=== PATIENT | male | born 1985 | race Caucasian/White ===

== ENCOUNTER 2023-10-15 20:11 | Emergency (ER) | payer SELFPAY ==
[~2023-10-15] VITALS: Ht 172.7 cm; Wt 90.7 kg
[2023-10-15 20:31] VITALS: BP 147/108; PULSE 104; RESP 16; TEMP 98.3; O2SAT 99
[2023-10-16 00:31] LABS: APPEARANCE,URINE CLEAR (CLEAR); BILIRUBIN,URINE NEGATIVE (NEGATIVE); BLOOD, URINE TRACE-I (NEGATIVE); COLOR,URINE YELLOW (YELLOW); LEUKOCYTE ESTERASE ,URINE NEGATIVE (NEGATIVE); NITRITE, URINE NEGATIVE (NEGATIVE); PROTEIN,URINE 1+ (NEGATIVE); UGLUCOSE 3+ (NEGATIVE); UROBILINOGEN,URINE 0.2 EU/dL (0.2 - 1)
[2023-10-16 00:46] LABS: BACTERIA,URINE OCCASSIONAL /HPF (None Seen); RBC,URINE 0-5 /HPF (0-5); SQUAMOUS EPITHELIAL CELL,UR 4-10 (MOD) /LPF (0-3 (FEW)); WBC,URINE 0-5 /HPF (0-5); YEAST,URINE Few /HPF (None Seen)
[2023-10-16 01:06] LABS: BASOPHILS # (AUTO) 0.1 K/uL (0.00-0.22); BASOPHILS % (AUTO) 1.2 % (0.0-2.0); EOSINOPHILS # (AUTO) 0.1 K/uL (0-0.4); HEMOGLOBIN 16.9 g/dL (12.0-18.0); LYMPHOCYTES # (AUTO) 2.1 K/uL (2.0-11.5); LYMPHOCYTES % (AUTO) 27.3 % (20.5-51.1); MEAN CORPUSCULAR HEMOGLOBIN 30 pg (27-31); MEAN CORPUSCULAR HGB CONC 35 g/dL (33-37); MEAN CORPUSCULAR VOLUME 84.2 fL (80-94); MONOCYTES # (AUTO) 0.5 K/uL (0.8-1.0); MONOCYTES % (AUTO) 6.2 % (1.7-9.3); NEUTROPHILS % (AUTO) 64.3 % (42.2-75.2); PLATELET COUNT (AUTO) 234 K/uL (140-450); RED BLOOD CELL COUNT(AUTO) 5.71 MIL/uL (4.20-6.10); WHITE BLOOD COUNT (AUTO) 7.8 K/uL (4.8-10.8)
[2023-10-16 01:25] LABS: ALANINE AMINOTRANSFERASE 116 U/L (12-78); ALBUMIN 3.6 g/dL (3.4-5.0); ALKALINE PHOSPHATASE 240 U/L (50-136); ASPARTATE AMINOTRANSFERASE 40 U/L (15-37); BILIRUBIN,DIRECT 0.2 mg/dL (0.0-0.3); TOTAL BILIRUBIN 1.5 mg/dL (0.0-1.0); TOTAL PROTEIN, SERUM 9.1 g/dL (6.4-8.2)
[2023-10-16 01:30] LABS: ANION GAP 14.1 (8-16); CALCIUM 8.9 mg/dL (8.5-10.1); CARBON DIOXIDE 28.9 mmol/L (21-32); CREATININE 1.1 mg/dL (0.6-1.3)
== END 2023-10-16 00:25 | disposition left against medical advice (07) ==
LOC: MED 20:11
DX: E11.9 Type 2 diabetes mellitus without complications (principal)
CPT/HCPCS: 36415; 80048; 80076; 81001; 83880; 84484; 85025; 99283

== ENCOUNTER 2023-10-18 12:47 | Emergency (ER) | payer OTHER ==
[~2023-10-18] VITALS: Ht 180.3 cm; Wt 90.7 kg
[2023-10-18 13:04] VITALS: BP 125/94; PULSE 107; RESP 18; TEMP 97.7; O2SAT 96
[2023-10-18] MEDS ORDERED: METF-1243 PO (13:33)
[2023-10-18] MEDS ORDERED: LOTC TP (13:33)
[2023-10-18] MEDS ORDERED: CEPH-588 PO (13:33)
== END 2023-10-18 13:49 | disposition home or self-care (01) ==
LOC: MED 12:47
DX: N48.1 Balanitis (principal); E11.65 Type 2 diabetes mellitus with hyperglycemia; Z79.4 Long term (current) use of insulin; Z79.899 Other long term (current) drug therapy
CPT/HCPCS: 99283

== ENCOUNTER 2023-10-23 08:59 | Emergency (ER) | payer OTHER ==
[~2023-10-23] VITALS: Ht 152.4 cm; Wt 90.7 kg
[~2023-10-23 08:59] MED LIST: CEPH-588 PO; LOTC TP; METF-1243 PO
[2023-10-23 09:02] VITALS: BP 121/98; PULSE 108; RESP 18; TEMP 98.9; O2SAT 98
[2023-10-23 09:45] LABS: APPEARANCE,URINE CLEAR (CLEAR); BILIRUBIN,URINE NEGATIVE (NEGATIVE); BLOOD, URINE TRACE-I (NEGATIVE); COLOR,URINE YELLOW (YELLOW); LEUKOCYTE ESTERASE ,URINE NEGATIVE (NEGATIVE); NITRITE, URINE NEGATIVE (NEGATIVE); PROTEIN,URINE 1+ (NEGATIVE); UGLUCOSE 3+ (NEGATIVE); UROBILINOGEN,URINE 0.2 EU/dL (0.2 - 1)
[2023-10-23 10:08] LABS: BACTERIA,URINE FEW /HPF (None Seen); SQUAMOUS EPITHELIAL CELL,UR 0-3 (FEW) /LPF (0-3 (FEW)); WBC,URINE 0-5 /HPF (0-5)
[2023-10-23] MEDS: NACL 0.9% 1,000 ML IV ONE (10:19)
[2023-10-23 10:20] VITALS: TEMP 98.9
[2023-10-23 10:27] VITALS: O2SAT 98
[2023-10-23 10:32] LABS: BASOPHILS % (AUTO) 0.7 % (0.0-2.0); EOSINOPHILS # (AUTO) 0.1 K/uL (0-0.4); EOSINOPHILS % (AUTO) 0.9 % (0.0-4.0); HEMATOCRIT 48.4 % (36-52); HEMOGLOBIN 16.5 g/dL (12.0-18.0); LYMPHOCYTES # (AUTO) 1.3 K/uL (2.0-11.5); LYMPHOCYTES % (AUTO) 21.7 % (20.5-51.1); MEAN CORPUSCULAR HEMOGLOBIN 29 pg (27-31); MEAN CORPUSCULAR HGB CONC 34 g/dL (33-37); MEAN CORPUSCULAR VOLUME 85.9 fL (80-94); MONOCYTES # (AUTO) 0.4 K/uL (0.8-1.0); MONOCYTES % (AUTO) 5.7 % (1.7-9.3); NEUTROPHILS # (AUTO) 4.3 K/uL (1.8-7.7); PLATELET COUNT (AUTO) 242 K/uL (140-450); RED BLOOD CELL COUNT(AUTO) 5.63 MIL/uL (4.20-6.10); RED CELL DISTRIBUTION WIDTH 13.7 % (11.6-13.7); WHITE BLOOD COUNT (AUTO) 6.1 K/uL (4.8-10.8)
[2023-10-23 10:48] LABS: ANION GAP 16.9 (8-16); CALCIUM 9.6 mg/dL (8.5-10.1); CARBON DIOXIDE 28.2 mmol/L (21-32); CREATININE 1.1 mg/dL (0.6-1.3); POTASSIUM 4.1 mmol/L (3.5-5.1)
[2023-10-23 10:49] LABS: ALBUMIN 3.5 g/dL (3.4-5.0); BILIRUBIN,DIRECT 0.2 mg/dL (0.0-0.3); TOTAL BILIRUBIN 1.4 mg/dL (0.0-1.0); TOTAL PROTEIN, SERUM 8.9 g/dL (6.4-8.2)
[2023-10-23] MEDS ORDERED: METF-713 PO (11:52)
[2023-10-23 12:06] VITALS: BP 120/78; PULSE 97; RESP 14; O2SAT 96
== END 2023-10-23 12:06 | disposition home or self-care (01) ==
LOC: MED 08:59
DX: E11.65 Type 2 diabetes mellitus with hyperglycemia (principal); R35.0 Frequency of micturition; Z79.899 Other long term (current) drug therapy
CPT/HCPCS: 36415; 80048; 80076; 81001; 82948; 85025; 96360; 99283; J7030

== ENCOUNTER 2023-10-29 13:49 | Emergency (ER) | payer OTHER ==
[~2023-10-29] VITALS: Ht 175.3 cm; Wt 93.5 kg
[~2023-10-29 13:49] MED LIST changes: +METF-713 PO
[2023-10-29 14:03] VITALS: BP 137/76; PULSE 111; RESP 20; TEMP 98.7; O2SAT 95
[2023-10-29 14:57] LABS: ANION GAP 9.3 (8-16); CALCIUM 8.3 mg/dL (8.5-10.1); CARBON DIOXIDE 29.6 mmol/L (21-32); POTASSIUM 3.9 mmol/L (3.5-5.1)
[2023-10-29 15:01] LABS: CREATINE KINASE, TOTAL 514 U/L (39-308)
[2023-10-29] MEDS: NACL 0.9% 1,000 ML IV SCH (15:31)
== END 2023-10-29 16:03 | disposition home or self-care (01) ==
LOC: MED 13:49
DX: E11.65 Type 2 diabetes mellitus with hyperglycemia (principal); M79.604 Pain in right leg; M79.605 Pain in left leg; Z79.899 Other long term (current) drug therapy
CPT/HCPCS: 36415; 80048; 82550; 82553; 96360; 99283; J7030

== ENCOUNTER 2024-02-05 20:57 | Inpatient (IN) | payer OTHER ==
[~2024-02-05] VITALS: Ht 175.3 cm; Wt 76.7 kg
[2024-02-05 20:59] VITALS: BP 130/82; PULSE 98; TEMP 97.2
[2024-02-05 21:23] VITALS: O2SAT 98
[2024-02-05 21:25] LABS: APPEARANCE,URINE CLEAR (CLEAR); BILIRUBIN,URINE NEGATIVE (NEGATIVE); BLOOD, URINE NEGATIVE (NEGATIVE); COLOR,URINE YELLOW (YELLOW); LEUKOCYTE ESTERASE ,URINE NEGATIVE (NEGATIVE); NITRITE, URINE NEGATIVE (NEGATIVE); PROTEIN,URINE NEGATIVE (NEGATIVE); UGLUCOSE 3+ (NEGATIVE); UROBILINOGEN,URINE 0.2 EU/dL (0.2 - 1)
[2024-02-05] MEDS: NACL 0.9% 1,000 ML IV ONE ×2 (21:47→23:19)
[2024-02-05 21:56] LABS: BASOPHILS % (AUTO) 1.1 % (0.0-2.0); EOSINOPHILS % (AUTO) 0.9 % (0.0-4.0); HEMATOCRIT 43.6 % (36-52); HEMOGLOBIN 15.6 g/dL (12.0-18.0); LYMPHOCYTES # (AUTO) 1.3 K/uL (2.0-11.5); LYMPHOCYTES % (AUTO) 28.7 % (20.5-51.1); MEAN CORPUSCULAR HEMOGLOBIN 32 pg (27-31); MEAN CORPUSCULAR HGB CONC 36 g/dL (33-37); MEAN CORPUSCULAR VOLUME 89.1 fL (80-94); MONOCYTES # (AUTO) 0.3 K/uL (0.8-1.0); MONOCYTES % (AUTO) 5.9 % (1.7-9.3); NEUTROPHILS # (AUTO) 2.8 K/uL (1.8-7.7); NEUTROPHILS % (AUTO) 63.4 % (42.2-75.2); PLATELET COUNT (AUTO) 204 K/uL (140-450); RED CELL DISTRIBUTION WIDTH 13.5 % (11.6-13.7); WHITE BLOOD COUNT (AUTO) 4.4 K/uL (4.8-10.8)
[2024-02-05 22:10] LABS: ANION GAP 26.9 (8-16); CALCIUM 8.8 mg/dL (8.5-10.1); CARBON DIOXIDE 16.4 mmol/L (21-32); CREATININE 1.1 mg/dL (0.6-1.3); POTASSIUM 5.3 mmol/L (3.5-5.1)
[2024-02-05] MEDS ORDERED: DEXT 5% / NACL 0.45% 1,000 ML IV SCH (22:25)
[2024-02-05] MEDS ORDERED: INSULIN LISPRO SLIDING SCALE 100 UNITS/ML VIAL SUBQ PRN (22:25)
[2024-02-05] MEDS ORDERED: INSULIN REGULAR, HUMAN 100 UNIT in NACL 0.9% 100 ML IV SCH ×2 (22:25→23:45)
[2024-02-05] MEDS: NACL 0.9% 1,000 ML IV SCH (22:25)
[2024-02-05] MEDS ORDERED: DEXTROSE 50% 50 ML SYR IVP PRN ×3 (22:25→23:50)
[2024-02-05] MEDS: BLOOD GLUCOSE MONITORING 1 DEV DEV FS SCH (22:36)
[2024-02-05] MEDS: POTASSIUM CHLORIDE 10 MEQ TABER PO ONE (23:20)
[2024-02-05] MEDS: LORazepam 1 MG TAB PO ONE (23:20)
[2024-02-05] MEDS ORDERED: HYDROcodone/APAP 5/325 MG 1 TAB TAB PO PRN (23:40)
[2024-02-05] MEDS ORDERED: KCL 20 MEQ IN 100 mL PREMIX 200 ML IV PRN (23:40)
[2024-02-05] MEDS ORDERED: ACETAMINOPHEN 325 MG TAB PO PRN (23:40)
[2024-02-05] MEDS ORDERED: MAGNESIUM OXIDE 400 MG TAB PO PRN (23:40)
[2024-02-05] MEDS ORDERED: MAG SULF 2000 MG/WATER PREMIX 50 ML IV PRN (23:40)
[2024-02-05] MEDS ORDERED: MORPHINE SULFATE 4 MG/ML SYR IVP PRN (23:40)
[2024-02-05] MEDS ORDERED: ONDANSETRON 4 MG/2 ML VIAL IVP PRN (23:40)
[2024-02-05] MEDS ORDERED: BLOOD GLUCOSE MONITORING 1 DEV DEV FS SCH ×2 (23:45→23:50)
[2024-02-05] MEDS ORDERED: DEXT 5% /NACL 0.9% 1,000 ML IV SCH (23:45)
[2024-02-05] MEDS: DEXT 5% / NACL 0.45% 1,000 ML IV SCH (23:50)
[2024-02-05] MEDS ORDERED: INSULIN REGULAR, HUMAN 100 UNIT/ML VIAL SUBQ ONE (23:50)
[2024-02-05] MEDS ORDERED: NACL 0.9% 1,000 ML IV SCH (23:50)
[2024-02-06] VITALS (9 sets, daily range): BP systolic 100–128; BP diastolic 64–82; PULSE 73–86; RESP 12–15; TEMP 97–97.5; O2SAT 93–98
[2024-02-06] MEDS ORDERED: BLOOD GLUCOSE MONITORING 1 DEV DEV FS SCH
[2024-02-06] MEDS: INSULIN REGULAR, HUMAN 100 UNIT in NACL 0.9% 100 ML IV SCH (00:15)
[2024-02-06] MEDS: NACL 0.9% 1,000 ML IV SCH (00:30)
[2024-02-06 00:54] LABS: ANION GAP 24.8 (8-16); CALCIUM 7.5 mg/dL (8.5-10.1); CREATININE 0.8 mg/dL (0.6-1.3); POTASSIUM 3.8 mmol/L (3.5-5.1)
[2024-02-06 00:55] LABS: MAGNESIUM 1.9 mg/dL (1.8-2.4); PHOSPHORUS 2.6 mg/dL (2.5-4.9)
[2024-02-06 04:31] LABS: ANION GAP 20.6 (8-16); CALCIUM 8.3 mg/dL (8.5-10.1); CREATININE 0.7 mg/dL (0.6-1.3); POTASSIUM 3.6 mmol/L (3.5-5.1)
[2024-02-06 04:35] LABS: PHOSPHORUS 2.3 mg/dL (2.5-4.9)
[2024-02-06 08:46] LABS: ANION GAP 15.1 (8-16); CALCIUM 8.3 mg/dL (8.5-10.1); CARBON DIOXIDE 26.4 mmol/L (21-32); CREATININE 0.6 mg/dL (0.6-1.3); POTASSIUM 3.5 mmol/L (3.5-5.1)
[2024-02-06 08:49] LABS: MAGNESIUM 1.8 mg/dL (1.8-2.4); PHOSPHORUS 2.5 mg/dL (2.5-4.9)
[2024-02-06] MEDS: BLOOD GLUCOSE MONITORING 1 DEV DEV FS SCH ×2 (09:00→16:30)
[2024-02-06 12:56] LABS: ANION GAP 12.6 (8-16); CALCIUM 8.5 mg/dL (8.5-10.1); CREATININE 0.7 mg/dL (0.6-1.3); POTASSIUM 3.6 mmol/L (3.5-5.1)
[2024-02-06 13:00] LABS: MAGNESIUM 1.9 mg/dL (1.8-2.4); PHOSPHORUS 3.2 mg/dL (2.5-4.9)
[2024-02-06] MEDS ORDERED: INSULIN LANTUS 100 UNITS/ML 10 ML VIAL SUBQ SCH (18:15)
[2024-02-06] MEDS: INSULIN LANTUS 100 UNITS/ML 10 ML VIAL SUBQ SCH (18:20)
[2024-02-06] MEDS: INSULIN LISPRO SLIDING SCALE 100 UNITS/ML VIAL SUBQ PRN (18:20)
[2024-02-06] MEDS: FAMOTIDINE 20 MG TAB PO SCH (21:29)
[2024-02-07 04:00] VITALS: BP 109/53; PULSE 65; RESP 15; TEMP 97.2; O2SAT 96
[2024-02-07 06:04] LABS: ANION GAP 10.9 (8-16); CALCIUM 8.1 mg/dL (8.5-10.1); CARBON DIOXIDE 27.4 mmol/L (21-32); CREATININE 0.5 mg/dL (0.6-1.3); POTASSIUM 3.3 mmol/L (3.5-5.1)
[2024-02-07 06:17] LABS: MAGNESIUM 1.8 mg/dL (1.8-2.4); PHOSPHORUS 3.8 mg/dL (2.5-4.9)
[2024-02-07 08:00] VITALS: BP 121/67; PULSE 77; RESP 18; TEMP 97.2; O2SAT 95
[2024-02-07] MEDS: INSULIN LANTUS 100 UNITS/ML 10 ML VIAL SUBQ SCH ×2 (09:53→16:51)
[2024-02-07 16:00] VITALS: BP 118/65; PULSE 85; RESP 18; TEMP 97.2; O2SAT 97
[2024-02-07] MEDS: POTASSIUM CHLORIDE 10 MEQ TABER PO PRN (17:32)
[2024-02-07 20:00] VITALS: TEMP 98
[2024-02-07] MEDS: INSULIN LISPRO 100 UNITS/ML VIAL SUBQ ONE (22:23)
[2024-02-08] VITALS: BP 122/60; PULSE 82; RESP 18; TEMP 98.2; O2SAT 98
[2024-02-08 05:32] LABS: MAGNESIUM 1.9 mg/dL (1.8-2.4); PHOSPHORUS 3.9 mg/dL (2.5-4.9)
[2024-02-08 05:41] LABS: ANION GAP 11.2 (8-16); CALCIUM 8.3 mg/dL (8.5-10.1); CARBON DIOXIDE 28.3 mmol/L (21-32); CREATININE 0.6 mg/dL (0.6-1.3); POTASSIUM 3.5 mmol/L (3.5-5.1)
[2024-02-08 08:00] VITALS: BP 117/73; PULSE 20; RESP 15; RESP 20; TEMP 97.5; TEMP 98; O2SAT 96; O2SAT 98
[2024-02-08 16:00] VITALS: BP 114/74; PULSE 20; RESP 20; TEMP 98.7; O2SAT 99
[2024-02-08] MEDS ORDERED: INSU100S22 SUBQ (17:12)
[2024-02-08] MEDS ORDERED: DAPA5TAB PO (17:12)
[2024-02-08] MEDS ORDERED: METF-352 PO (17:12)
[2024-02-08] MEDS ORDERED: INSU-1165 SQ (17:12)
[2024-02-08 19:05] VITALS: BP 119/72; PULSE 76; RESP 15; TEMP 98.6
[2024-02-08] MEDS ORDERED: INSULIN LANTUS 100 UNITS/ML 10 ML VIAL SUBQ SCH (21:00)
== END 2024-02-08 19:36 | disposition home or self-care (01) | DRG 420 ==
LOC: MED 20:57 → MIC 23:40 → MTU 02-06 → MIC 02-06 06:30 → MTU 02-06 19:58
PROVIDERS: ADMIT Hospitalist; ATTEND Hospitalist
DX: E11.10 Type 2 diabetes mellitus with ketoacidosis without coma (principal); E86.0 Dehydration; Z20.822 Contact with and (suspected) exposure to COVID-19; F41.9 Anxiety disorder, unspecified; Z79.84 Long term (current) use of oral hypoglycemic drugs; Z79.899 Other long term (current) drug therapy; Z91.148 Patient's other noncompliance with medication regimen for other reason
CPT/HCPCS: 36415; 80048; 81003; 82009; 82803; 82948; 83036; 83735; 84100; 85025; 87081; 99291; J1644; J1815